=== PATIENT | female | born 1960 | race American Indian/Alaskan Native ===

== ENCOUNTER 2020-02-16 10:42 | Outpatient (CLI) | payer OTHER ==
[2020-02-16 11:28] LABS: Blood Urea Nitrogen 14 mg/dL (7-17)
--- NOTE | 2020-02-16 11:57 | XRay Report ---
CHEST 2 VIEWS INDICATION: COUGH. COMPARISON: 06/11/2010 FINDINGS: Support devices: None. Heart: Within normal limits. Pulmonary vasculature: The right pulmonary artery is prominent but unchanged since the last exam. Lungs/pleura: No acute air space or interstitial disease. No pneumothorax. Additional findings: None. IMPRESSION: 1. No acute findings. Signer Name: Nasir Junior MD Signed: 02/16/2020 11:52 AM Workstation Name: [id number]
== END 2020-02-16 10:43 | disposition home or self-care (01) ==
LOC: XRAY 10:42
PROVIDERS: ATTEND Internal Medicine
DX: R05 Cough (principal)
CPT/HCPCS: 36415; 71046; 82565; 84520